=== PATIENT | female | born 1980 | race Caucasian/White ===

== ENCOUNTER 2016-09-09 16:20 | Inpatient (IN) | payer BC ==
[2016-09-09 16:26] VITALS: BMI 31.2
[2016-09-09] MEDS ORDERED: ACETAMINOPHEN 325 MG TABLET (FP) PO ONE (16:42)
--- NOTE | 2016-09-09 16:46 | PDOC ---
History of Present Illness <Nicholas Tomlin - Last Filed: 09/09/16 16:46> - General History Source: Patient Exam Limitations: No Limitations - History of Present Illness Initial Comments: 09/09/16 16:54 The patient is a 35 year old female with no significant past medical history, presenting to the Emergency Department with lower left abdominal pain and fever. The patient reports that she was feeling okay yesterday morning, but began to experience lower left abdominal pain last night. She describes the pain as sharp and worsening since last night. She also reports back pain. She admits to a fever that started today. The patient denies nausea or vomiting, though she has not eaten much due to decreased appetite and the pain. The patient denies nausea, vomiting, and diarrhea. Patient denies chills, or cough. Patient denies melena, or hematochezia. Patient denies neck pain. <Amisha De Guzman - Last Filed: 09/09/16 18:09> <Tricia Rivas - Last Filed: 09/09/16 22:40> - General Chief Complaint: Pain Stated Complaint: ABDOMINAL PAIN Time Seen by Provider: 09/09/16 16:45 Past History - Past Medical History Anemia: No Asthma: No Cancer: No Cardiac Disorders: No CVA: No COPD: No CHF: No Dementia: No Diabetes: No GI Disorders: No Disorders: No HTN: No Hypercholesterolemia: Yes Liver Disease: No Seizures: No Thyroid Disease: No - Surgical History Abdominal Surgery: Yes (TUBAL LIGATION) Appendectomy: No Cardiac Surgery: No Cholecystectomy: No Lung Surgery: No Neurologic Surgery: No Orthopedic Surgery: Yes (ACL REPAIR 2008) - Psycho/Social/Smoking Cessation Hx Anxiety: No Suicidal Ideation: No Smoking Status: No Smoking History: Never smoked Have you smoked in the past 12 months: No Number of Cigarettes Smoked Daily: 0 Information on smoking cessation initiated: No Hx Alcohol Use: No Drug/Substance Use Hx: No Substance Use Type: None Hx Substance Use Treatment: No <Nicholas Tomlin - Last Filed: 09/09/16 16:46> <Amisha De Guzman - Last Filed: 09/09/16 18:09> <Tricia Rivas - Last Filed: 09/09/16 22:40> - Past Medical History Allergies/Adverse Reactions: Allergies Allergy/AdvReac Type Severity Reaction Status Date / Time No Known Allergies Allergy Verified 09/09/16 16:21 Home Medications: Ambulatory Orders NK [No Known Home Medication] 09/09/16 Review of Systems - Review of Systems Able to Perform ROS?: Yes Comments:: 09/09/16 16:54 GENERAL/CONSTITUTIONAL: No fever or chills. No weakness. HEAD, EYES, EARS, NOSE AND THROAT: No change in vision. No ear pain or discharge. No sore throat. CARDIOVASCULAR: No chest pain or shortness of breath. RESPIRATORY: No cough, wheezing, or hemoptysis. GASTROINTESTINAL: + left lower abdominal pain. No nausea, vomiting, diarrhea or constipation. GENITOURINARY: No dysuria, frequency, or change in urination. MUSCULOSKELETAL: + back pain. No joint or muscle swelling or pain. No neck pain. SKIN: No rash NEUROLOGIC: No headache, vertigo, loss of consciousness, or change in strength/ sensation. ENDOCRINE: + decreased appetite. No increased thirst. No abnormal weight change. HEMATOLOGIC/LYMPHATIC: No anemia, easy bleeding, or history of blood clots. ALLERGIC/IMMUNOLOGIC: No hives or skin allergy. <Amisha De Guzman - Last Filed: 09/09/16 18:09> *Physical Exam - Vital Signs Last Vital Signs Temp Pulse Resp BP Pulse Ox 101.7 F H 114 H 18 134/80 97 09/09/16 16:22 09/09/16 16:22 09/09/16 16:22 09/09/16 16:22 09/09/16 16:22 <Nicholas Tomlin - Last Filed: 09/09/16 16:46> - Vital Signs Last Vital Signs Temp Pulse Resp BP Pulse Ox 101.7 F H 114 H 18 134/80 97 09/09/16 16:22 09/09/16 16:22 09/09/16 16:22 09/09/16 16:22 09/09/16 16:22 <Amisha De Guzman - Last Filed: 09/09/16 18:09> - Vital Signs Last Vital Signs Temp Pulse Resp BP Pulse Ox 98.9 F 84 20 103/64 100 09/09/16 20:48 09/09/16 18:01 09/09/16 18:01 09/09/16 18:01 09/09/16 18:01 <Tricia Rivas - Last Filed: 09/09/16 22:40> Heart Score/ECG Review #1 ECG reviewed & interpreted by me at: 17:55 (EKG reviewed by Dr. Tomlin, [facility] Normal sinus rhythm, nonspecific T wave abnormality, vent rate 96 bpm ) <Amisha De Guzman - Last Filed: 09/09/16 18:09> ED Treatment Course - Medications Given in the ED: ED Medications Discontinued Medications Generic Name Dose Route Start Last Admin Trade Name Freq PRN Reason Stop Dose Admin Acetaminophen 975 mg 09/09/16 16:42 09/09/16 16:44 Tylenol - PO 09/09/16 16:43 975 mg NOW ONE Administration <Nicholas Tomlin - Last Filed: 09/09/16 16:46> - LABORATORY CBC & Chemistry Diagram: 09/09/16 17:09 09/09/16 17:09 - Medications Given in the ED: ED Medications Discontinued Medications Generic Name Dose Route Start Last Admin Trade Name Freq PRN Reason Stop Dose Admin Acetaminophen 975 mg 09/09/16 16:42 09/09/16 16:44 Tylenol - PO 09/09/16 16:43 975 mg NOW ONE Administration <Amisha De Guzman - Last Filed: 09/09/16 18:09> - LABORATORY CBC & Chemistry Diagram: 09/09/16 17:09 09/09/16 17:09 - ADDITIONAL ORDERS Additional order review: Laboratory Results 09/09/16 09/09/16 09/09/16 20:11 19:35 19:30 INR PTT (Actin FS) VBG pH 7.39 POC VBG pCO2 35.6 L POC VBG pO2 59.7 H Mixed VBG HCO3 21.0 Sodium Potassium Chloride Carbon Dioxide Anion Gap BUN Creatinine Creat Clearance w eGFR Random Glucose Lactic Acid 1.022 Calcium Total Bilirubin AST ALT Alkaline Phosphatase Creatine Kinase Creatine Kinase Index CK-MB (CK-2) Troponin I Total Protein Albumin Serum , Qual Urine Color Urine Appearance Urine pH Ur Specific Penrose Urine Protein Urine Glucose (UA) Urine Ketones Urine Blood Urine Nitrite Urine Bilirubin Urine Urobilinogen Ur Leukocyte Esterase Urine RBC Urine WBC Ur Epithelial Cells Urine Mucus Blood Type O POSITIVE Antibody Screen Negative 09/09/16 09/09/16 09/09/16 17:25 17:09 17:09 INR PTT (Actin FS) VBG pH POC VBG pCO2 POC VBG pO2 Mixed VBG HCO3 Sodium 137 Potassium 3.7 Chloride 103 Carbon Dioxide 22 Anion Gap 12 BUN 7 D Creatinine 0.8 D Creat Clearance w eGFR > 60 Random Glucose 110 H Lactic Acid 2.083 H* Calcium 8.7 Total Bilirubin 0.5 D AST 21 ALT 30 Alkaline Phosphatase 90 Creatine Kinase 183 D Creatine Kinase Index CK-MB (CK-2) < 1.000 Troponin I < 0.02 Total Protein 7.9 Albumin 3.9 Serum , Qual Negative Urine Color Urine Appearance Urine pH Ur Specific Penrose Urine Protein Urine Glucose (UA) Urine Ketones Urine Blood Urine Nitrite Urine Bilirubin Urine Urobilinogen Ur Leukocyte Esterase Urine RBC Urine WBC Ur Epithelial Cells Urine Mucus Blood Type Antibody Screen 09/09/16 09/09/16 17:09 17:09 INR 1.04 PTT (Actin FS) 32.5 VBG pH POC VBG pCO2 POC VBG pO2 Mixed VBG HCO3 Sodium Potassium Chloride Carbon Dioxide Anion Gap BUN Creatinine Creat Clearance w eGFR Random Glucose Lactic Acid Calcium Total Bilirubin AST ALT Alkaline Phosphatase Creatine Kinase Creatine Kinase Index CK-MB (CK-2) Troponin I Total Protein Albumin Serum , Qual Urine Color Yellow Urine Appearance Clear Urine pH 7.0 Ur Specific Penrose 1.015 Urine Protein 1+ H Urine Glucose (UA) Negative Urine Ketones Negative Urine Blood 3+ H Urine Nitrite Positive Urine Bilirubin Negative Urine Urobilinogen Negative Ur Leukocyte Esterase 2+ H Urine RBC 17 Urine WBC 89 Ur Epithelial Cells Rare Urine Mucus Rare Blood Type Antibody Screen 09/09/16 17:09 RBC 4.90 MCV 83.0 MCHC 32.8 RDW 13.4 MPV 7.0 L Neutrophils % 86.0 H D Lymphocytes % 2.0 L D Monocytes % 9.0 - Medications Given in the ED: ED Medications Discontinued Medications Generic Name Dose Route Start Last Admin Trade Name Freq PRN Reason Stop Dose Admin Acetaminophen 975 mg 09/09/16 16:42 09/09/16 16:44 Tylenol - PO 09/09/16 16:43 975 mg NOW ONE Administration Acetaminophen 1,000 mg 09/09/16 16:52 09/09/16 17:23 Tylenol - PO 09/09/16 16:53 Not Given ONCE ONE Ceftriaxone Sodium 2 gm/ 100 mls @ 200 mls/hr 09/09/16 17:46 09/09/16 18:00 Dextrose IVPB 09/09/16 18:15 200 mls/hr ONCE ONE Administration Sodium Chloride 2,177 ml 09/09/16 16:49 09/09/16 17:10 Normal Saline - IV 09/09/16 16:50 2,177 ml ONCE STA Administration <Tricia Rivas - Last Filed: 09/09/16 22:40> Medical Decision Making - Medical Decision Making 09/09/16 20:57 I received patient on sign out on patient . She has flank pain and dysuria; SHe has WBC20; nitrite positive urine; she has pyelonephritis. She received IV saline, ceftriaxone, and tylenol. She still has pain. I will treat with toradol and morphine. Pt will be admitted to the hospitalist for pyelonephritis. Patient Name: Millie Bergeron THIS IS A PRELIMINARY REPORT FROM [facility] EXAM: CT abdomen and pelvis with intravenous and oral contrast IMAGES: 496 EXAM DATE AND TIME: 2016-09-09 19:33:10.0 REASON FOR EXAM: Abdominal pain and fever COMPARISON: None. FINDINGS: Small pericardial effusion There is left perinephric stranding without hydronephrosis. No stones are seen along the course of the ureter or within the bladder. Findings may be residual from a recently passed stone versus infection. There are multiple nonobstructing stones in the left kidney An 8 mm cortical hypodensity in the upper pole of the left kidney is likely a cyst Cortical defect in the upper pole of the right kidney likely scarring The liver is mildly enlarged The upper abdominal visceral organs are otherwise unremarkable There is no bowel obstruction or distention The appendix is normal Colonic diverticulosis, predominantly sigmoid colon without evidence of acute diverticulitis No free air, free fluid or loculated collections THIS DOCUMENT HAS BEEN ELECTRONICALLY SIGNED 09/09/16 22:39 Pt admitted to the hospitalist for pyelonephritis. <Tricia Rivas - Last Filed: 09/09/16 22:40> *DC/Admit/Observation/Transfer - Attestations Physician Attestion: 09/09/16 16:46 I, Dr. Nicholas Tomlin, attest that this document has been prepared under my direction and personally reviewed by me in its entirety. I further attest, that it accurately reflects all work, treatment, procedures and medical decision -making performed by me. <Nicholas Tomlin - Last Filed: 09/09/16 16:46> - Attestations Scribe Attestion: 09/09/16 16:56 Documentation prepared by Amisha De Guzman, acting as associate medical director for Nicholas Tomlin DO. <Amisha De Guzman - Last Filed: 09/09/16 18:09> - Discharge Dispostion Admit: Yes <Tricia Rivas - Last Filed: 09/09/16 22:40> Diagnosis at time of Disposition: Pyelonephritis, UTI (urinary tract infection), Renal stones - Referrals
[2016-09-09] MEDS ORDERED: SODIUM CHLORIDE 0.9% 1000 ML INFUS.BAG IV STA (16:49)
[2016-09-09] MEDS ORDERED: ACETAMINOPHEN 500 MG TABLET (FP) PO ONE (16:52)
[2016-09-09 17:24] LABS: URINE APPEARANCE CLEAR; URINE BILIRUBIN NEGATIVE (NEGATIVE); URINE COLOR YELLOW; URINE GLUCOSE (UA) NEGATIVE (NEGATIVE); URINE KETONE NEGATIVE (NEGATIVE); URINE NITRITE POSITIVE (NEGATIVE); URINE UROBILINOGEN NEGATIVE E.U./dl (0.2-1.0)
[2016-09-09 17:25] LABS: MCH 27.3 pg (25.7-33.7); MCHC 32.8 g/dl (32.0-36.0); PLATELET COUNT 351 K/MM3 (134-434); RDW 13.4 % (11.6-15.6); WHITE BLOOD COUNT 20.3 K/mm3 (4.0-10.0)
[2016-09-09 17:30] LABS: URINE BLOOD 3+ (NEGATIVE); URINE LEUK ESTERASE 2+ (NEGATIVE); URINE PROTEIN 1+ (NEGATIVE)
[2016-09-09 17:33] LABS: URINE MUCUS RARE; URINE RBC 17 /hpf (0-3); URINE WBC 89 /hpf (3-5)
[2016-09-09 17:36] LABS: INR 1.04 (0.82-1.09); PROTHROMBIN TIME (PATIENT) 11.5 SEC (9.98-11.88)
[2016-09-09 17:38] LABS: ACTIVATED PTT 32.5 SECONDS (26.9-34.4)
[2016-09-09 17:45] LABS: ALBUMIN 3.9 g/dl (3.4-5.0); ANION GAP 12 (8-16); BILIRUBIN,TOTAL 0.5 mg/dL (0.2-1.0); CALCIUM 8.7 mg/dL (8.5-10.1); CO2 22 mmol/L (21-32); COCKROFT - GAULT 110.3045; CREATININE 0.8 mg/dL (0.55-1.02); GLUCOSE,RANDOM 110 mg/dL (74-106); SGOT/AST 21 U/L (15-37); SGPT/ALT 30 U/L (12-78); TOT PROT 7.9 g/dl (6.4-8.2)
[2016-09-09] MEDS ORDERED: CEFTRIAXONE 2 GM in DEXTROSE 5%-WATER - 100 ML IVPB ONE (17:46)
[2016-09-09 17:47] LABS: ALK PHOS 90 U/L (45-117); TROPONIN I < 0.02 ng/ml (0.00-0.05)
[2016-09-09] MEDS ORDERED: CEFTRIAXONE 100 ML IVPB ONE (17:50)
[2016-09-09 17:58] LABS: PLATELET ESTIMATE ADEQUATE (NORMAL)
[2016-09-09 19:33] LABS: VENOUS PH 7.39 (7.32-7.42)
[2016-09-09] MEDS ORDERED: KETOROLAC TROMETHAMINE 30 MG/1 ML VIAL IVPUSH ONE (20:55)
[2016-09-09] MEDS ORDERED: morphine CARPU-JECT 2 MG/1 ML DISP.SYRIN ONE (20:56)
[2016-09-09] MEDS ORDERED: morphine CARPU-JECT 2 MG/1 ML DISP.SYRIN IVPUSH ONE (21:01)
[2016-09-09] MEDS ORDERED: KETOROLAC TROMETHAMINE 30 MG/1 ML VIAL ONE (21:44)
[2016-09-09] MEDS ORDERED: SODIUM CHLORIDE 1,000 ML IV SCH (23:00)
[2016-09-09] MEDS ORDERED: ONDANSETRON 4 MG/2 ML VIAL IVPB PRN (23:00)
--- NOTE | 2016-09-09 23:08 | PN ---
Teaching Attending Note Name of Resident: Ant Lord ATTENDING PHYSICIAN STATEMENT I saw and evaluated the patient. I reviewed the resident's note and discussed the case with the resident. I agree with the resident's findings and plan as documented. SUBJECTIVE: 35 y/o lady with h/o nephrolithiasis, s/p L UVJ obstructing stone , s/p L ureteral stent placement and stone extraction in 2012 , whop resented with L L abd pain and chills. this am , she developed LLQ pain, with chills, and no fever . she has been having dysuria in past 2 days , but attributed that to her period ( day 2 today ) . denies N/V, has no diarrhea . no other complaints in ER , CT showed L renal stranding , and she was given CTX. OBJECTIVE: NAD HEENT: NC, AT, MMM, no JVD, symmetric face , no facial droop,. Lungs: CTAB Abd :soft, TTP in suprapubic area and L CVA tenderness . nl BS , no rebound tenderness or guarding CV: RRR, No mRG Ext : no edema , DP 2+ b/l Imaging : There is left perinephric stranding without hydronephrosis. No stones are seen along the course of the ureter or within the bladder. Findings may be residual from a recently passed stone versus infection. There are multiple nonobstructing stones in the left kidney An 8 mm cortical hypodensity in the upper pole of the left kidney is likely a cys ASSESSMENT AND PLAN: 35 y/o lady with h/o nephrolithiasis, s/p L UVJ obstructing stone , s/p L ureteral stent placement and stone extraction in 2012 , whop resented with L L abd pain and chills. She was found to have acute L pyelonephritis 1- Acute L pyelonephritis with severe sepsis : no obstructing stones were seen on Ct scan . lactic acid responded to IVF, and pt is hemodynamically stable - blood cx and urine cx were sent - Received Rocephin in ER. - urine cx in 2011 , showed eneterobacter which was resistant to PCN with intermediate sensitivity to Rocephin. and sensitive to levaquin - will use levaquin empirically pending urine cx results - IVF NS @ 100 - toradol for pain. - no need for repeat imaging unless, clinical picture worsens or does not respond to treatment - follow CBC - urology f/u as out pt as there is no obstructing stone 2- DVT px
[2016-09-09] MEDS ORDERED: PANTOPRAZOLE 40 MG TABLET (FP) ONE (23:33)
--- NOTE | 2016-09-09 23:55 | HP ---
CHIEF COMPLAINT: LLQ Abdominal pain PCP: [facility] ? HISTORY OF PRESENT ILLNESS: Patient is a 35 year old female with significant PMH of nephrolithiasis (2012, s /p stent & extraction surgery) who presents to ED with LLQ abdominal pain & fever. Patient states pain started last night & has worsened progressively since then. The pain is located in her LLQ but feels like it may have radiated a bit closer to her groin onver the last 24 hours, according to patient. She also notes bilateral flank pain, LEFT>RIGHT, that started this afternoon. Patient states that she has had decreased appetite & fever chills for last 24 hours, but initially thought it was because she was starting to menstruate. She also notes some mild dysuria over last few days, but again states that this is common during her menstrual cycle at times. Denies shortness of breath, palpitations, headache, nausea, vomiting. ER course was notable for: (1)Leukocytosis WBC 20 with neutrophils 86% (2)CT Abd: Left perinephric stranding without signs of hydronephrosis; some non- obstructing stones noted in left kidney (3)UA 2+ LE w/ 89WBC Recent Travel: NONE NOTED PAST MEDICAL HISTORY: ABOVE PAST SURGICAL HISTORY: URETHRAL STENT & STONE EXTRACTION, ACL SURGERY, TUBAL LIGATION Social History: Smoking:NONE Alcohol:NONE Drugs:NONE Family History: ADOPTED, DOES NOT KNOW Allergies No Known Allergies Allergy (Verified 09/09/16 16:21) HOME MEDICATIONS: Home Medications Medication Instructions Recorded NK [No Known Home Medication] 09/09/16 REVIEW OF SYSTEMS CONSTITUTIONAL: (+)fever, chills, loss of appetite, Absent: diaphoresis, generalized weakness, malaise, weight change HEENT: Absent: rhinorrhea, nasal congestion, throat pain, throat swelling, difficulty swallowing, mouth swelling, ear pain, eye pain, visual changes CARDIOVASCULAR: Absent: chest pain, syncope, palpitations, irregular heart rate, lightheadedness , peripheral edema RESPIRATORY: Absent: cough, shortness of breath, dyspnea with exertion, orthopnea, wheezing, stridor, hemoptysis GASTROINTESTINAL: (+)abdominal pain, Absent: abdominal distension, nausea, vomiting, diarrhea, constipation, melena, hematochezia GENITOURINARY: (+)dysuria, flank pain, Absent: frequency, urgency, hesitancy, hematuria, genital pain MUSCULOSKELETAL: Absent: myalgia, arthralgia, joint swelling, back pain, neck pain SKIN: Absent: rash, itching, pallor HEMATOLOGIC/IMMUNOLOGIC: Absent: easy bleeding, easy bruising, lymphadenopathy, frequent infections ENDOCRINE: Absent: unexplained weight gain, unexplained weight loss, heat intolerance, cold intolerance NEUROLOGIC: Absent: headache, focal weakness or paresthesias, dizziness, unsteady gait, seizure, mental status changes, bladder or bowel incontinence PSYCHIATRIC: Absent: anxiety, depression, suicidal or homicidal ideation, hallucinations. PHYSICAL EXAMINATION Vital Signs - 24 hr 09/09/16 22:01 Temperature 99.5 F Pulse Rate [ 83 Left Radial] Respiratory 20 Rate Blood Pressure 135/99 [Right Arm] O2 Sat by Pulse 99 Oximetry (%) GENERAL: Awake, alert, and fully oriented, in no acute distress. HEENT: Atraumatic, EOMI, PERRLA, No lymphadenopathy noted, moist membranes LUNGS: Breath sounds equal, clear to auscultation bilaterally. No wheezes, and no crackles. No accessory muscle use. HEART: Regular rate and rhythm, normal S1 and S2 without murmur, rub or gallop. ABDOMEN: Soft, moderately tender to palpation diffuse lower abdomen but notably in LLQ. Not distended, normoactive bowel sounds, no guarding, no rebound. MUSCULOSKELETAL: Normal range of motion at all joints. No bony deformities or tenderness. CVA TENDERNESS BILATERALLY (LEFT>RIGHT) UPPER EXTREMITIES: 2+ pulses, warm, well-perfused. No cyanosis. No clubbing. No peripheral edema. LOWER EXTREMITIES: 2+ pulses, warm, well-perfused. No calf tenderness. No peripheral edema. NEUROLOGICAL: Cranial nerves II-XII intact. Normal speech. Normal gait. PSYCHIATRIC: Cooperative. Good eye contact. Appropriate mood and affect. SKIN: Warm, dry, normal turgor, no rashes or lesions noted, normal capillary refill. ASSESSMENT/PLAN: 35 year old female with significant PMH of nephrolithiasis (2011, s/p stent & extraction surgery) who presents to ED with LLQ abdominal pain & fever. #Severe sepsis, secondary to left pyelonephritis -Rocephin given in ED, will start on Levaquin based on earlier urine culture findings from previous admission -Bolused with IVF in ED, BP/HR now stable -IVF NS@100cc/hr -urine, blood cultures sent -pain management w/ Toradol PRN -No ultrasound needed at present, can decide if needed based on trend tomorrow -will need urology outpatient followup Prophylaxis -Heparin 5000BID -PPI given -IVF NS@100cc/hr -regular diet Visit type - Emergency Visit Emergency Visit: Yes ED Registration Date: 09/09/16 Care time: The patient presented to the Emergency Department on the above date and was hospitalized for further evaluation of their emergent condition. - New Patient This patient is new to me today: Yes Date on this admission: 09/10/16 - Critical Care Critical Care patient: No
[2016-09-10] MEDS ORDERED: LEVOFLOXACIN 500 MG IVPB 100 ML IVPB ONE (00:17)
[2016-09-10] MEDS: SODIUM CHLORIDE 1,000 ML IV SCH ×2 (01:00→21:31)
[2016-09-10] MEDS: ACETAMINOPHEN 325 MG TABLET (FP) PO PRN ×3 (06:33→21:32)
[2016-09-10] MEDS: HEPARIN NA (PORCINE) 5,000 UNITS/ML 1ML VIAL SQ SCH ×3 (06:34→21:30)
[2016-09-10] MEDS: KETOROLAC TROMETHAMINE 30 MG/1 ML VIAL IVPUSH PRN ×2 (06:34→11:13)
[2016-09-10 07:09] LABS: BASOPHIL 0.4 % (0-2.0); EOSINOPHIL 0.1 % (0-4.5); MCH 27.8 pg (25.7-33.7); MCHC 33.1 g/dl (32.0-36.0); MEAN CELL VOLUME 83.9 fl (80-96); MEAN PLT VOLUME 7.2 fl (7.5-11.1); NEUTROPHILS 87.4 % (42.8-82.8); PLATELET COUNT 314 K/MM3 (134-434); RDW 13.3 % (11.6-15.6); WHITE BLOOD COUNT 19.3 K/mm3 (4.0-10.0)
[2016-09-10 07:32] LABS: CALCIUM 8.4 mg/dL (8.5-10.1); COCKROFT - GAULT 157.9215; CREATININE 0.6 mg/dL (0.55-1.02)
[2016-09-10] MEDS ORDERED: CEFTRIAXONE 50 ML IVPB SCH (10:00)
[2016-09-10] MEDS: PANTOPRAZOLE 20 MG TABLET (FP) PO SCH ×2 (10:03)
[2016-09-10] MEDS: LEVOFLOXACIN 500 MG IVPB 100 ML IVPB SCH (10:03)
--- NOTE | 2016-09-10 10:17 | EKG ---
Test Reason : Blood Pressure : / mmHG Vent. Rate : 096 BPM Atrial Rate : 096 BPM P-R Int : 152 ms QRS Dur : 070 ms QT Int : 354 ms P-R-T Axes : 028 060 022 degrees QTc Int : 447 ms NORMAL SINUS RHYTHM NONSPECIFIC T WAVE ABNORMALITY ABNORMAL ECG WHEN COMPARED WITH ECG OF 15-JUN-2013 14:32, VENT. RATE HAS INCREASED BY 34 BPM NONSPECIFIC T WAVE ABNORMALITY NOW EVIDENT IN LATERAL LEADS Confirmed by HAMMAD LANTIGUA MD ([id number]) on 09/10/2016 10:17:50 AM Referred By: Confirmed By:HAMMAD LANTIGUA MD
[2016-09-10] MEDS ORDERED: SODIUM CHLORIDE 1,000 ML IV STA (10:34)
--- NOTE | 2016-09-10 10:40 | PN ---
Teaching Attending Note Name of Resident: Warner Patel ATTENDING PHYSICIAN STATEMENT I saw and evaluated the patient. I reviewed the resident's note and discussed the case with the resident. I agree with the resident's findings and plan as documented. SUBJECTIVE: She says she is feeling "much better" and would like to go home. She says she felt "10/10 bad" on admission and now feels "5/10." But she does want to go home today. OBJECTIVE: Vitals noted She is very well appearing CBC noted ASSESSMENT AND PLAN: She is well appearing, young, healthy and immunocompetent She got her morning Levaquin She does have a persistent leukocytosis BCx negative I am in favor of repeating CBC today and reassessing before discharging She did promise that if we discharge her, she will see PCP tomorrow and return with ANY worsening or new symptoms Levaquin does have excellent bioavailability and she already received her dose today See resident note for full details
[2016-09-10 12:11] LABS: BASOPHIL 0.3 % (0-2.0); EOSINOPHIL 0.4 % (0-4.5); MCH 28.3 pg (25.7-33.7); MCHC 33.4 g/dl (32.0-36.0); MEAN CELL VOLUME 84.6 fl (80-96); NEUTROPHILS 84.1 % (42.8-82.8); PLATELET COUNT 287 K/MM3 (134-434); RDW 13.4 % (11.6-15.6); WHITE BLOOD COUNT 13.9 K/mm3 (4.0-10.0)
--- NOTE | 2016-09-10 15:20 | DS ---
Physical Exam: SUBJECTIVE: Patient seen and examined at bedside. Pain is significantly improved. Feels well enough to go home.Denies CP,MURRAY, SOB, abd.pain, N/V. OBJECTIVE: Vital Signs Period Temp Pulse Resp BP Sys/Wiley Pulse Ox Last 24 Hr 98.6 F-99.9 F 78-96 16-20 99-135/54-99 97-99 PHYSICAL EXAM GENERAL: The patient is awake, alert, and fully oriented, in no acute distress. HEAD: Normal with no signs of trauma. EYES: PERRL, extraocular movements intact, sclera anicteric, conjunctiva clear. ENT: Ears normal, nares patent, moist mucous membranes. NECK: Trachea midline, full range of motion, supple. LUNGS: Breath sounds equal, clear to auscultation bilaterally, no wheezes, no crackles, no accessory muscle use. HEART: Regular rate and rhythm, S1, S2 without murmur, rub or gallop. ABDOMEN: Soft, nontender, nondistended, normoactive bowel sounds, no guarding, no rebound, no hepatosplenomegaly, no masses. EXTREMITIES: 2+ pulses, warm, well-perfused, no edema. NEUROLOGICAL: Cranial nerves II through XII grossly intact. Normal speech, gait not observed. PSYCH: Normal mood, normal affect. SKIN: Warm, dry, normal turgor, no rashes or lesions noted. LABS Laboratory Results - last 24 hr 09/10/16 09/10/16 09/10/16 05:35 05:35 11:50 WBC 19.3 H 13.9 H RBC 4.40 4.23 Hgb 12.2 12.0 Hct 37.0 35.8 MCV 83.9 84.6 MCHC 33.1 33.4 RDW 13.3 13.4 Plt Count 314 287 MPV 7.2 L 7.0 L Neutrophils % 87.4 H 84.1 H Lymphocytes % 3.4 L D 7.0 L D Monocytes % 8.7 8.2 Eosinophils % 0.1 D 0.4 D Basophils % 0.4 0.3 Sodium 137 Potassium 3.7 Chloride 105 Carbon Dioxide 19 L Anion Gap 13 BUN 5 L D Creatinine 0.6 D Random Glucose 109 H Calcium 8.4 L Imaging: * CT/ABDOMEN PELVIS CT WITH CONTR Clinical history: Abdominal pain and fever. Left lower quadrant tenderness. Comparison: September 17, 2011. Contiguous transaxial images were obtained from the diaphragmatic domes and pubic symphysis after the administration of oral and IV contrast. Sagittal and coronal reconstructions were performed. Lung bases: Negative. Bone: Negative. Liver: Mild hepatomegaly. Gallbladder: Negative. Biliary tree: Negative. Spleen: Negative. Pancreas: Negative. Kidneys: Small hypodensity in the upper pole of the left kidney most likely represents a cyst. Small left renal calculi. No hydronephrosis in either kidney. There is left perirenal stranding. The possibility of a recently passed stone is raised. Cortical scarring upper pole right kidney. Adrenals: Negative. Pelvis: Negative. Bowel: Diverticulosis without CT evidence of diverticulitis. Normal-appearing appendix. Other: Negative. Impression: No evidence of hydronephrosis or left ureteral or bladder stone. Multiple small intrarenal calculi on the left. Mild left perirenal stranding. The question of a recently passed stone is raised. Right cortical scarring and small left upper pole probable cyst. There is diverticulosis without CT evidence of diverticulitis. Clinical correlation advised. Study was initially read by Darron. Reported By : Cornelius Sandoval MD HOSPITAL COURSE: Patient is a 35 year old female with significant PMH of nephrolithiasis (2012, s /p stent & extraction surgery) who presented to ED with LLQ abdominal pain & fever. Patient stated pain started last night & has worsened progressively since then. The pain was located in her LLQ but feels like it may have radiated a bit closer to her groin over the last 24 hours, according to patient. She also noted bilateral flank pain, LEFT>RIGHT, that started this afternoon. Patient states that she has had decreased appetite & fever chills for last 24 hours, but initially thought it was because she was starting to menstruate. She also notes some mild dysuria over last few days, but again states that this is common during her menstrual cycle at times. Date of Admission:09/09/16 Date of Discharge: 09/10/16 This patient developed spike in fever prior to completion of discharge and patient was later discharged once clinical condition stabilized. Please refer to subsequent discharge summary for complete hospital course. Minutes to complete discharge: 35 Discharge Summary Reason For Visit: UTI/CACULUS KIDNEY/PYELONEPHRYIYTIS Current Active Problems Pyelonephritis (Acute) UTI (urinary tract infection) (Acute) Condition: Stable - Instructions Diet, Activity, Other Instructions: continue the antibiotics starting tomorrow for 11 more days take the antibiotics until they are finished exercise daily follow up with your primary care doctor follow up with the urologist if you experience these symptoms again go to the nearest emergency room it was a pleasure taking care of you Good luck Dr. Thaddeus Marsh Referrals: Mike Longoria [Primary Care Provider] - Braden Fenton MD [Staff Physician] - Disposition: HOME - Home Medications Comprehensive Discharge Medication List: Ambulatory Orders NK [No Known Home Medication] 09/09/16 Problem List - Problems (1) Pyelonephritis Assessment/Plan: * Given Rocephin x1 and Levaquin 500mg IV x1 * CBC showed decrease in WBC from 20--> 13 * Hydrated with IVF of NS * significant clinical improvement. * Discussed with patient the importance of quick follow up with PCP and she agreed. * Will refer to Urology for follow up . * She will be given 14 day course of Levaquin and pain control with Toradol. * Told to return to ED if pain worsens or develops fever/chills. (2) UTI (urinary tract infection) Assessment/Plan: * As above for pyelonephritis. This patient is new to me today: Yes Date on this admission: 09/14/16 Emergency Visit: Yes ED Registration Date: 09/09/16 Care time: The patient presented to the Emergency Department on the above date and was hospitalized for further evaluation of their emergent condition. Critical Care patient: No - Discharge Referral Referred to [facility] Med P.C.: No
[2016-09-10] MEDS ORDERED: morphine CARPU-JECT 2 MG/1 ML DISP.SYRIN IVPUSH ONE (16:47)
[2016-09-11] MEDS: ACETAMINOPHEN 325 MG TABLET (FP) PO PRN ×2 (06:17→14:43)
[2016-09-11] MEDS: HEPARIN NA (PORCINE) 5,000 UNITS/ML 1ML VIAL SQ SCH ×3 (06:17→21:09)
[2016-09-11] MEDS: SODIUM CHLORIDE 1,000 ML IV SCH ×2 (06:18→18:13)
--- NOTE | 2016-09-11 09:09 | PN ---
Teaching Attending Note Name of Resident: Thaddeus Marsh ATTENDING PHYSICIAN STATEMENT I saw and evaluated the patient. I reviewed the resident's note and discussed the case with the resident. I agree with the resident's findings and plan as documented. Subjective: Comfortable, fever overnight, but no acute distress. No shortness of breath. Vital Signs Temperature 101.1 F H 09/11/16 05:00 Pulse Rate 101 H 09/11/16 05:00 Respiratory Rate 18 09/11/16 05:00 Blood Pressure 117/79 09/11/16 05:00 O2 Sat by Pulse Oximetry (%) 97 09/10/16 21:00 CBCD WBC 13.9 K/mm3 (4.0-10.0) H 09/10/16 11:50 RBC 4.23 M/mm3 (3.60-5.2) 09/10/16 11:50 Hgb 12.0 GM/dL (10.7-15.3) 09/10/16 11:50 Hct 35.8 % (32.4-45.2) 09/10/16 11:50 MCV 84.6 fl (80-96) 09/10/16 11:50 MCHC 33.4 g/dl (32.0-36.0) 09/10/16 11:50 RDW 13.4 % (11.6-15.6) 09/10/16 11:50 Plt Count 287 K/MM3 (134-434) 09/10/16 11:50 MPV 7.0 fl (7.5-11.1) L 09/10/16 11:50 CMP Sodium 137 mmol/L (136-145) 09/10/16 05:35 Potassium 3.7 mmol/L (3.5-5.1) 09/10/16 05:35 Chloride 105 mmol/L (98-107) 09/10/16 05:35 Carbon Dioxide 19 mmol/L (21-32) L 09/10/16 05:35 Anion Gap 13 (8-16) 09/10/16 05:35 BUN 5 mg/dL (7-18) L D 09/10/16 05:35 Creatinine 0.6 mg/dL (0.55-1.02) D 09/10/16 05:35 Creat Clearance w eGFR > 60 (>60) 09/09/16 17:09 Random Glucose 109 mg/dL (74-106) H 09/10/16 05:35 Calcium 8.4 mg/dL (8.5-10.1) L 09/10/16 05:35 Total Bilirubin 0.5 mg/dL (0.2-1.0) D 09/09/16 17:09 AST 21 U/L (15-37) 09/09/16 17:09 ALT 30 U/L (12-78) 09/09/16 17:09 Alkaline Phosphatase 90 U/L (45-117) 09/09/16 17:09 Total Protein 7.9 g/dl (6.4-8.2) 09/09/16 17:09 Albumin 3.9 g/dl (3.4-5.0) 09/09/16 17:09 CARDIAC ENZYMES Creatine Kinase 183 IU/L (26-192) D 09/09/16 17:09 Troponin I < 0.02 ng/ml (0.00-0.05) 09/09/16 17:09 Current Medications Generic Name Dose Route Start Last Admin Trade Name Freq PRN Reason Stop Dose Admin Acetaminophen 650 mg 09/09/16 23:00 09/11/16 06:17 Tylenol - PO 650 mg Q4H PRN Administration FEVER OR PAIN Heparin Sodium (Porcine) 5,000 unit 09/10/16 06:00 09/11/16 06:17 Heparin - SQ 5,000 unit TID NAT Administration Sodium Chloride 1,000 mls @ 100 mls/hr 09/10/16 00:19 09/11/16 06:18 Normal Saline - IV 100 mls/hr ASDIR NAT Administration Levofloxacin 100 mls @ 100 mls/hr 09/10/16 00:44 09/10/16 10:03 Levaquin 500 Mg Premixed Ivpb - IVPB 100 mls/hr DAILY ANT Administration Ketorolac Tromethamine 30 mg 09/10/16 00:17 09/10/16 11:13 Toradol Injection - IVPUSH 09/15/16 00:16 30 mg Q6H PRN Administration PAIN Pantoprazole Sodium 20 mg 09/09/16 23:15 09/10/16 10:03 Protonix - PO 20 mg DAILY NAT Administration Microbiology 09/09/16 17:09 Urine - Urine Clean Catch Urine Culture - Preliminary Lactose Fermenting Neg Bacilli 09/09/16 17:25 Blood - Peripheral Venous Blood Culture - Preliminary NO GROWTH OBTAINED AFTER 24 HOURS, INCUBATION TO CONTINUE FOR 4 DAYS. 09/09/16 17:09 Blood - Peripheral Venous Blood Culture - Preliminary NO GROWTH OBTAINED AFTER 24 HOURS, INCUBATION TO CONTINUE FOR 4 DAYS. Imaging : There is left perinephric stranding without hydronephrosis. No stones are seen along the course of the ureter or within the bladder. Findings may be residual from a recently passed stone versus infection. There are multiple nonobstructing stones in the left kidney An 8 mm cortical hypodensity in the upper pole of the left kidney is likely a cys ASSESSMENT AND PLAN: Patient is a 35 y/o lady with h/o nephrolithiasis, s/p L UVJ obstructing stone , s/p L ureteral stent placement and stone extraction in 2011 , who presented with L abd pain and chills. She was found to have acute L pyelonephritis # Acute Left pyelonephritis with sepsis ; positive for Lactose Fermenting Neg Bacilli on IV antibiotic Rocephin was changed to IV Levaquin since patient's previously showed eneterobacter which was resistant to PCN with intermediate sensitivity to Rocephin but sensitive to levaquin ; patient has not used Levaquin before. Urology f/u as out pt as there is no obstructing stone waiting for sensitivity of the antibiotic before discharging the patient home. DVT px :early ambulation ,heparin sq tid Rest of notes per resident
[2016-09-11] MEDS: LEVOFLOXACIN 500 MG IVPB 100 ML IVPB SCH (09:46)
[2016-09-11] MEDS: PANTOPRAZOLE 20 MG TABLET (FP) PO SCH (09:46)
--- NOTE | 2016-09-11 12:27 | PN ---
Physical Exam: SUBJECTIVE: Patient seen and examined at bedside febrile to 103 at 9pm last night and 101.1 at 5am this morning this morning she states she feels very well and wants to go home. OBJECTIVE: Vital Signs Period Temp Pulse Resp BP Sys/Wiley Pulse Ox Last 24 Hr 98.8 F-103 F 78-112 18-20 97-132/54-79 96-97 GENERAL: The patient is awake, alert, and fully oriented, in no acute distress. HEAD: Normal with no signs of trauma. EYES: PERRL, extraocular movements intact, sclera anicteric, conjunctiva clear. ENT: Ears normal, nares patent, moist mucous membranes. NECK: Trachea midline, full range of motion, supple. LUNGS: Breath sounds equal, clear to auscultation bilaterally, no wheezes, no crackles, no accessory muscle use. HEART: Regular rate and rhythm, S1, S2 without murmur, rub or gallop. ABDOMEN: Soft, nontender, nondistended, normoactive bowel sounds, no guarding, no rebound, no hepatosplenomegaly, no masses. EXTREMITIES: 2+ pulses, warm, well-perfused, no edema. NEUROLOGICAL: Cranial nerves II through XII grossly intact. Normal speech, gait not observed. PSYCH: Normal mood, normal affect. SKIN: Warm, dry, normal turgor, no rashes or lesions noted. Laboratory Results - last 24 hr 09/10/16 11:50 WBC 13.9 H RBC 4.23 Hgb 12.0 Hct 35.8 MCV 84.6 MCHC 33.4 RDW 13.4 Plt Count 287 MPV 7.0 L Neutrophils % 84.1 H Lymphocytes % 7.0 L D Monocytes % 8.2 Eosinophils % 0.4 D Basophils % 0.3 Active Medications Generic Name Dose Route Start Last Admin Trade Name Freq PRN Reason Stop Dose Admin Acetaminophen 650 mg 09/09/16 23:00 09/11/16 06:17 Tylenol - PO 650 mg Q4H PRN Administration FEVER OR PAIN Heparin Sodium (Porcine) 5,000 unit 09/10/16 06:00 09/11/16 06:17 Heparin - SQ 5,000 unit TID NAT Administration Sodium Chloride 1,000 mls @ 100 mls/hr 09/10/16 00:19 09/11/16 06:18 Normal Saline - IV 100 mls/hr ASDIR NAT Administration Levofloxacin 100 mls @ 100 mls/hr 09/10/16 00:44 09/11/16 09:46 Levaquin 500 Mg Premixed Ivpb - IVPB 100 mls/hr DAILY NAT Administration Ketorolac Tromethamine 30 mg 09/10/16 00:17 09/10/16 11:13 Toradol Injection - IVPUSH 09/15/16 00:16 30 mg Q6H PRN Administration PAIN Pantoprazole Sodium 20 mg 09/09/16 23:15 09/11/16 09:46 Protonix - PO 20 mg DAILY NAT Administration ASSESSMENT/PLAN: 35F with no PMH presented to the ED with left flank pain radiating to the groin found to have left pyelonephritis. Pyelonephritis/UTI: Continue levaquin UCx growing lactose fermenting GM negative bacilli. f/u sensitivities Discharge once abefrile and sensitivities are back toradol for apin control FEN: stop IVF No electrolyte issues regular diet PPx: HSQ no indication for GI PPx no PT consult needed Visit type - Emergency Visit Emergency Visit: Yes ED Registration Date: 09/09/16 Care time: The patient presented to the Emergency Department on the above date and was hospitalized for further evaluation of their emergent condition. - New Patient This patient is new to me today: Yes Date on this admission: 09/11/16 - Critical Care Critical Care patient: No
[2016-09-11] MEDS ORDERED: ACETAMINOPHEN 325 MG TABLET (FP) PO PRN (15:36)
[2016-09-12] MEDS: HEPARIN NA (PORCINE) 5,000 UNITS/ML 1ML VIAL SQ SCH ×2 (05:59→15:14)
[2016-09-12] MEDS: SODIUM CHLORIDE 1,000 ML IV SCH (06:00)
[2016-09-12] MEDS: LEVOFLOXACIN 500 MG IVPB 100 ML IVPB SCH (09:28)
--- NOTE | 2016-09-12 13:44 | DS ---
Physical Exam: SUBJECTIVE: Patient seen and examined at bedside Afebrile for more than 24 hours asymptomatic wants to go home OBJECTIVE: Vital Signs Period Temp Pulse Resp BP Sys/Wiley Pulse Ox Last 24 Hr 98.4 F-99.3 F 80-84 18-20 115-135/71-87 96 PHYSICAL EXAM GENERAL: The patient is awake, alert, and fully oriented, in no acute distress. HEAD: Normal with no signs of trauma. EYES: PERRL, extraocular movements intact, sclera anicteric, conjunctiva clear. ENT: Ears normal, nares patent, moist mucous membranes. NECK: Trachea midline, full range of motion, supple. LUNGS: Breath sounds equal, clear to auscultation bilaterally, no wheezes, no crackles, no accessory muscle use. HEART: Regular rate and rhythm, S1, S2 without murmur, rub or gallop. ABDOMEN: Soft, nontender, nondistended, normoactive bowel sounds, no guarding, no rebound, no hepatosplenomegaly, no masses. EXTREMITIES: 2+ pulses, warm, well-perfused, no edema. NEUROLOGICAL: Cranial nerves II through XII grossly intact. Normal speech, gait not observed. PSYCH: Normal mood, normal affect. SKIN: Warm, dry, normal turgor, no rashes or lesions noted. LABS HOSPITAL COURSE: Date of Admission:09/09/16 Date of Discharge: 09/12/16 35F with no PMH presented to the hospital in severe sepsis secondary to pyelonephritis. She was admitted to the hospital and was resuscitated. She was started on ABx. Continued to spike fevers throughout her hospital course up until her second hospital day in the morning when she stopped spiking fevers. UCx grew a youssef sensitive E. coli. She will be discharged on PO levaquin for 11 more days to complete a 14 day course. Minutes to complete discharge: 40 Discharge Summary Reason For Visit: UTI/CACULUS KIDNEY/PYELONEPHRYIYTIS Current Active Problems Pyelonephritis (Acute) Renal stones (Acute) UTI (urinary tract infection) (Acute) Condition: Stable - Instructions Diet, Activity, Other Instructions: continue the antibiotics starting tomorrow for 11 more days take the antibiotics until they are finished exercise daily follow up with your primary care doctor follow up with the urologist if you experience these symptoms again go to the nearest emergency room it was a pleasure taking care of you Good luck Dr. Thaddeus Marsh Referrals: Mike Longoria [Primary Care Provider] - Braden Fenton MD [Staff Physician] - Disposition: HOME - Home Medications Comprehensive Discharge Medication List: Ambulatory Orders Levofloxacin [Levaquin -] 500 mg PO DAILY #11 tablet 09/12/16 This patient is new to me today: No Emergency Visit: Yes ED Registration Date: 09/09/16 Care time: The patient presented to the Emergency Department on the above date and was hospitalized for further evaluation of their emergent condition. Critical Care patient: No - Discharge Referral Referred to [facility] Med P.C.: No
[2016-09-12 13:50] VITALS: BP 104/73; PULSE 73; TEMP 98.3
--- NOTE | 2016-09-12 18:44 | PN ---
Teaching Attending Note Name of Resident: Thaddeus Marsh ATTENDING PHYSICIAN STATEMENT I saw and evaluated the patient. I reviewed the resident's note and discussed the case with the resident. I agree with the resident's findings and plan as documented. SUBJECTIVE: no fever or chills, no abd pain , no CP or SOB OBJECTIVE: NAD Lungs: CTAB Abd :soft, NT, NL BS , no CVA tenderness CV: RRR, No mRG Ext : no edema , DP 2+ b/l ASSESSMENT AND PLAN: 35 y/o lady with h/o nephrolithiasis, s/p L UVJ obstructing stone , s/p L ureteral stent placement and stone extraction in 2011 , whop resented with L L abd pain and chills. She was found to have acute L pyelonephritis 1- Acute L pyelonephritis with severe sepsis :sepsis resolved . She is doig better . no bacteremia Urine cx with E coli, sensitive to LEvaquin no more fever d/c on levaquin for 11 more dys to complete 14 days f/u with uro as out pt dispo : home today
== END 2016-09-12 15:19 | disposition home or self-care (01) | DRG 872 ==
LOC: JER 16:20 → JERBED 21:00 → J7W 09-10 01:14
PROVIDERS: ADMIT Internal Medicine; ATTEND Internal Medicine
DX: A41.9 Sepsis, unspecified organism (principal); N10 Acute pyelonephritis; R65.20 Severe sepsis without septic shock; B96.20 Unspecified Escherichia coli [E. coli] as the cause of diseases classified elsewhere; R10.32 Left lower quadrant pain; N20.0 Calculus of kidney
CPT/HCPCS: 36415; 71010-TC; 74177-TC; 80048; 80053; 81003; 81015; 82550; 82553; 82803; 83605; 84484; 84703; 85025; 85610; 85730; 86850; 86900; 86901; 87040; 87086; 87186; 93005; 93010; 99285-25; J1644

== ENCOUNTER 2018-12-22 12:26 | Emergency (ER) | payer BC ==
--- NOTE | 2018-12-22 12:31 | PDOC ---
History of Present Illness - General Chief Complaint: Pain Stated Complaint: RIGHT LEG CRAMPS, NUMBNESS Time Seen by Provider: 12/22/18 12:30 History Source: Patient Exam Limitations: No Limitations - History of Present Illness Initial Comments: 12/22/18 12:52 Millie Bergeron is a 38y previously healthy F presenting with R leg cramping. Started 1hr ago while she was walking, tender in R posterior calf. Had 2 prior episodes in past month, same location. No trauma. Can still walk. Denies leg numbness, tingling, rash, fever, SOB/chest pain, loss of urinary/ bowel function. 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 Past History - Past Medical History Allergies/Adverse Reactions: Allergies Allergy/AdvReac Type Severity Reaction Status Date / Time No Known Allergies Allergy Verified 12/22/18 12:29 Home Medications: Ambulatory Orders NK [No Known Home Medication] 12/22/18 Anemia: No Asthma: No Cancer: No Cardiac Disorders: No CVA: No COPD: No CHF: No Dementia: No Diabetes: No GI Disorders: No Disorders: No HTN: No Hypercholesterolemia: Yes Kidney Stones: Yes Liver Disease: No Seizures: No Thyroid Disease: No - Surgical History Abdominal Surgery: Yes (TUBAL LIGATION) Appendectomy: No Cardiac Surgery: No Cholecystectomy: No Lung Surgery: No Neurologic Surgery: No Orthopedic Surgery: Yes (ACL REPAIR 2008) - Suicide/Smoking/Psychosocial Hx Smoking Status: No Smoking History: Never smoked Have you smoked in the past 12 months: No Number of Cigarettes Smoked Daily: 0 Hx Alcohol Use: No Drug/Substance Use Hx: No Substance Use Type: None Hx Substance Use Treatment: No Review of Systems - Review of Systems Constitutional: No: Chills, Fever HEENTM: No: Eye Pain, Ear Pain, Throat Pain, Mouth Pain Respiratory: No: Cough, Shortness of Breath Cardiac (ROS): No: Chest Pain, Lightheadedness, Palpitations, Syncope ABD/GI: No: Constipated, Diarrhea, Nausea, Vomiting : No: Burning, Dysuria, Discharge, Frequency, Flank Pain, Hematuria Musculoskeletal: Yes: Muscle Pain. No: Back Pain, Joint Pain, Joint Swelling, Muscle Weakness Integumentary: No: Bruising, Dryness, Erythema, Flushing Neurological: No: Headache, Numbness, Paresthesia, Seizure, Tingling, Tremors Psychiatric: No: Anxiety, Depression Endocrine: No: Excessive Sweating, Flushing, Intolerance to Cold, Intolerance to Heat Hematologic/Lymphatic: No: Anemia, Blood Clots, Easy Bleeding *Physical Exam - Physical Exam General Appearance: Yes: Nourished, Appropriately Dressed. No: Apparent Distress HEENT: positive: EOMI, RAKESH, Normal Voice, Hearing Grossly Normal. negative: Nasal Congestion, Rhinorrhea, Lesions, Flores Respiratory/Chest: positive: Lungs Clear, Normal Breath Sounds. negative: Chest Tender, Respiratory Distress, Crackles, Rales, Rhonchi, Stridor, Wheezing Cardiovascular: positive: Regular Rhythm, Regular Rate, S1, S2. negative: Edema , Murmur Extremity: positive: Normal Inspection, Normal Range of Motion, Calf Tenderness , Other (Bilateral lower extremities: good distal pulses, 5/5 motor strength, normal/equal sensation). negative: Pedal Edema, Swelling, Erythema, Inflammation Integumentary: positive: Normal Color Neurologic: positive: Fully Oriented, Alert, Normal Mood/Affect, Normal Response , Motor Strength 5/5, Responsive. negative: Numbness, Confused, Disoriented Medical Decision Making - Medical Decision Making 12/22/18 12:55 Given 400 ibuprofen Millie Bergeron is a 38y previously healthy F presenting with R leg cramping. Cramping likely d/t strenuous walking and inadequate hydration as rural route carrier. Normal pulses, sensation, strength, ROM on leg exam. No leg swelling indicating thrombosis. No LE numbness, loss of function suggesting cauda equina. No trauma. Given ibuprofen for pain relief. D/c home with stretching exercises, advised to drink fluids, rest, take NSAIDs if needed. 12/22/18 12:59 *DC/Admit/Observation/Transfer Diagnosis at time of Disposition: Leg cramp - Discharge Dispostion Disposition: HOME Condition at time of disposition: Good - Referrals Referrals: David Mora MD [Primary Care Provider] - - Patient Instructions Printed Discharge Instructions: Stretching Exercises, DI for Leg Pain Additional Instructions: You were seen for right leg cramping. Your exam did not show anything concerning. You were given ibuprofen for the pain. When you get a leg cramp, stretch and rest your leg. Drink plenty of fluids and take ibuprofen if the pain persists. Please seen your primary care doctor if you continue to have muscle cramps. Come back to the ED if you cannot walk or the pain is unbearable. - Post Discharge Activity Forms/Work/School Notes: Back to Work
[2018-12-22 12:40] VITALS: BP 142/108; PULSE 80; TEMP 98.3; BMI 30.2
[2018-12-22] MEDS ORDERED: IBUPROFEN 400 MG TABLET (FP) PO ONE ×2 (12:47→12:51)
--- NOTE | 2018-12-22 12:58 | PDOC ---
Attending Attestation - Resident Resident Name: Mayito Guzmán - HPI HPI: 12/22/18 13:00 Pt presents to the ED complaining of cramping to her RLE that has been present since last night. 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 Denies swelling, fever, or injury to the leg. Pain involves the lower thigh, knee and upper leg, and is made worse by standing and walking. Pain is described as cramping and is moderate in severity. - Physicial Exam PE: 12/22/18 13:06 Gen: alert, NAD EXt: No deformity, swelling or tenderness. Calves are symmetric, with no edema. full ROM at knee. Able to weightbear without difficulty. - Medical Decision Making 12/22/18 13:07 Pt presents to the ED complaining of cramping in her RLE. No symptoms suggestive of infection, claudication or DVT. Most likely muscular pain. Will discharge home with instructions to return to the ED for follow up.
== END 2018-12-22 13:00 | disposition home or self-care (01) ==
LOC: FER 12:26
DX: R25.2 Cramp and spasm (principal); E78.00 Pure hypercholesterolemia, unspecified
CPT/HCPCS: 99282-25

== ENCOUNTER 2020-07-09 18:00 | Emergency (ER) | payer BC ==
[2020-07-09 18:09] VITALS: BP 130/91; PULSE 95; TEMP 98.1; BMI 31.1
[2020-07-09 19:17] LABS: HCG,QUALITATIVE URINE Negative
[2020-07-09 19:18] LABS: PH,URINE 6.5 (5.0-8.0); URINE APPEARANCE CLEAR; URINE BILIRUBIN NEGATIVE (NEGATIVE); URINE COLOR YELLOW; URINE GLUCOSE (UA) NEGATIVE (NEGATIVE); URINE KETONE NEGATIVE (NEGATIVE); URINE LEUK ESTERASE NEGATIVE (NEGATIVE); URINE NITRITE NEGATIVE (NEGATIVE); URINE PROTEIN NEGATIVE (NEGATIVE); URINE UROBILINOGEN 0.2 mg/dL (0.2-1.0)
[2020-07-09] MEDS ORDERED: ACETAMINOPHEN 1000 MG/100 ML VIAL (NON FORMULARY) IVPB ONE (19:30)
[2020-07-09] MEDS ORDERED: LACTATED RINGERS SOLUTION 1000 ML INFUS.BAG IV ONE (19:30)
[2020-07-09] MEDS ORDERED: ACETAMINOPHEN INJECTION 100 ML IVPB ONE (19:51)
[2020-07-09 20:31] LABS: BASO % 0.5 % (0-2.0); EOS % 2.1 % (0-4.5); HEMATOCRIT 37.1 % (32.4-45.2); HEMOGLOBIN 12.6 GM/dL (10.7-15.3); LYMPH % 21.9 % (8-40); MCH 28.3 pg (25.7-33.7); MCHC 33.9 g/dl (32.0-36.0); MEAN CELL VOLUME 83.5 fl (80-96); MEAN PLT VOLUME 7.2 fl (7.5-11.1); MONO % 10.4 % (3.8-10.2); NEUT % 65.1 % (42.8-82.8); PLATELET COUNT 470 K/MM3 (134-434); RBC 4.44 M/mm3 (3.60-5.2); RDW 13.4 % (11.6-15.6); WHITE BLOOD COUNT 10.3 K/mm3 (4.0-10.0)
[2020-07-09 20:35] LABS: BLOOD UREA NITROGEN 9.6 mg/dL (7-18); CALCIUM 9.3 mg/dL (8.5-10.1)
[2020-07-09 20:36] LABS: ALBUMIN 3.6 g/dl (3.4-5.0)
[2020-07-09 20:39] LABS: CREATININE 0.7 mg/dL (0.55-1.3)
[2020-07-09 20:40] LABS: BILIRUBIN,TOTAL 0.2 mg/dL (0.2-1); TOT PROT 7.2 g/dl (6.4-8.2)
[2020-07-10 00:07] LABS: URINE RBC 0-5 /hpf (0-4); URINE WBC 0-2 (NEGATIVE)
[2020-07-10 00:08] LABS: EPI CELLS 0-5 /HPF; HYALINE CASTS 0 /lpf; URINE BACTERIA FEW /hpf (NEGATIVE)
== END 2020-07-10 00:17 | disposition home or self-care (01) ==
LOC: JER 18:00
PROC: 3E033NZ Introduction of Analgesics, Hypnotics, Sedatives into Peripheral Vein, Percutaneous Approach (ICD-10-PCS; principal; 2020-07-09)
DX: K57.90 Diverticulosis of intestine, part unspecified, without perforation or abscess without bleeding (principal); N83.201 Unspecified ovarian cyst, right side
CPT/HCPCS: 36415; 74177-TC; 80053; 81003; 83605; 84703; 85025; 87086; 99285-25; J0131; Q9967

== ENCOUNTER 2022-04-09 17:14 | Emergency (ER) | payer OTHER, BC ==
[2022-04-09 18:29] VITALS: BP 136/90; PULSE 89; RESP 18; TEMP 97.8; BMI 30.2
[2022-04-09] MEDS ORDERED: ACETAMINOPHEN 500 MG TABLET (FP) PO ONE (18:57)
[2022-04-09] MEDS ORDERED: KETOROLAC TROMETHAMINE 30 MG/1 ML VIAL IM ONE (18:57)
[2022-04-09] MEDS ORDERED: KETOROLAC TROMETHAMINE 30 MG/1 ML VIAL ONE (19:48)
[2022-04-09] MEDS ORDERED: ACETAMINOPHEN 500 MG TABLET (FP) ONE (19:49)
== END 2022-04-09 20:36 | disposition home or self-care (01) ==
LOC: JER 17:14 → JERFT 17:14
PROC: 3E0233Z Introduction of Anti-inflammatory into Muscle, Percutaneous Approach (ICD-10-PCS; principal; 2022-04-09)
DX: S93.492A Sprain of other ligament of left ankle, initial encounter (principal); W10.9XXA Fall (on) (from) unspecified stairs and steps, initial encounter
CPT/HCPCS: 73610-TC-RT-FY; 73630-TC-RT-FY; 99284-25

== ENCOUNTER 2022-07-18 04:22 | Day surgery (SDC) | payer BC, OTHER ==
[2022-07-13 18:45] VITALS: BMI 30.4
[~2022-07-18 04:22] MED LIST: BUPIVACAINE 0.25% /EPI 1:200,000 10 ML VIAL NR ONE
[2022-07-18] MEDS ORDERED: ceFAZolin SODIUM 1 GM VIAL ONE (07:37)
[2022-07-18] MEDS ORDERED: CEFAZOLIN 2 GM in DEXTROSE 5%-WATER - 100 ML IVPB ONE (08:00)
[2022-07-18] MEDS ORDERED: ceFAZolin SODIUM 1 GM VIAL IVPB ONE (09:58)
[2022-07-18] MEDS ORDERED: BUPIVACAINE 0.25% /EPI 1:200,000 10 ML VIAL NR ONE ×2 (12:09)
[2022-07-18] MEDS ORDERED: KETOROLAC TROMETHAMINE 30 MG/1 ML VIAL IVPUSH PRN (12:43)
[2022-07-18] MEDS ORDERED: SIMETHICONE 80 MG TAB.CHEW (FP) PO PRN (12:43)
[2022-07-18] MEDS ORDERED: oxyCODONE HCL 5 MG TABLET PO ONE (12:57)
[2022-07-18] MEDS ORDERED: ONDANSETRON 4 MG/2 ML VIAL ONE (13:01)
[2022-07-18] MEDS ORDERED: ONDANSETRON 4 MG/2 ML VIAL IVPUSH ONE (13:41)
[2022-07-18] MEDS: HYDROmorphone HCl 2 MG/ML VIAL ONE ×4 (14:03→14:49)
[2022-07-18] MEDS ORDERED: HYDROmorphone HCL 2 MG TABLET PO ONE (15:50)
[2022-07-18 15:56] VITALS: RESP 20; TEMP 98
[2022-07-18] MEDS ORDERED: ACETAMINOPHEN 1000 MG/100 ML BAG IVPB ONE (18:00)
[2022-07-18 19:58] VITALS: BP 110/68; PULSE 70
== END 2022-07-18 17:55 | disposition home or self-care (01) ==
LOC: JASU-SURG 04:22
PROVIDERS: ATTEND Specialist
PROC: 8E0W4CZ Robotic Assisted Procedure of Trunk Region, Percutaneous Endoscopic Approach (ICD-10-PCS; 2022-07-18)
PROC: 0UQF7ZZ Repair Cul-de-sac, Via Natural or Artificial Opening (ICD-10-PCS; 2022-07-18)
PROC: 0UT9FZZ Resection of Uterus, Via Natural or Artificial Opening With Percutaneous Endoscopic Assistance (ICD-10-PCS; principal; 2022-07-18 09:00)
PROC: 0UT7FZZ Resection of Bilateral Fallopian Tubes, Via Natural or Artificial Opening With Percutaneous Endoscopic Assistance (ICD-10-PCS; 2022-07-18 09:00)
DX: D25.1 Intramural leiomyoma of uterus (principal); N72 Inflammatory disease of cervix uteri; N83.8 Other noninflammatory disorders of ovary, fallopian tube and broad ligament; N81.5 Vaginal enterocele
CPT/HCPCS: 57268; 58554; S2900; 81025; 82962; 88302-TC; 88307-TC; 94760

== ENCOUNTER 2024-01-07 19:21 | Emergency (ER) | payer BC ==
[2024-01-07 19:34] VITALS: BP 150/99; PULSE 78; RESP 18; TEMP 97.7; BMI 31.1
[2024-01-07] MEDS: LACTATED RINGERS SOLUTION 1000 ML INFUS.BAG IV ONE (20:39)
[2024-01-07 20:43] LABS: BASO % 0.6 % (0-2.0); EOS % 2.5 % (0-4.5); HEMATOCRIT 38.7 % (32.4-45.2); LYMPH % 20.8 % (8-40); MCHC 33.5 g/dl (32.0-36.0); MEAN CELL VOLUME 83.6 fl (80-96); MEAN PLT VOLUME 6.8 fl (7.5-11.1); MONO % 8.7 % (3.8-10.2); NEUT % 67.4 % (42.8-82.8); PLATELET COUNT 434 10^3/uL (134-434); RBC 4.63 M/mm3 (3.60-5.2); RDW 13.7 % (11.6-15.6); WHITE BLOOD COUNT 9.8 K/mm3 (4.0-10.0)
[2024-01-07 20:47] LABS: HCG,QUALITATIVE URINE Negative
[2024-01-07] MEDS ORDERED: ACETAMINOPHEN INJECTION 100 ML ONE (20:48)
[2024-01-07 20:53] LABS: URINE APPEARANCE CLEAR; URINE BILIRUBIN NEGATIVE (NEGATIVE); URINE COLOR YELLOW; URINE GLUCOSE (UA) NEGATIVE (NEGATIVE); URINE KETONE NEGATIVE (NEGATIVE); URINE LEUK ESTERASE NEGATIVE (NEGATIVE); URINE NITRITE NEGATIVE (NEGATIVE); URINE PROTEIN NEGATIVE (NEGATIVE); URINE UROBILINOGEN 0.2 mg/dL (0.2-1.0)
[2024-01-07] MEDS: ACETAMINOPHEN 1000 MG/100 ML BAG IVPB ONE (20:53)
[2024-01-07 21:09] LABS: POTASSIUM 4.1 mmol/L (3.5-5.1)
[2024-01-07 21:11] LABS: CALCIUM 9.1 mg/dL (8.5-10.1)
[2024-01-07 21:12] LABS: ALBUMIN 3.7 g/dl (3.4-5.0); BLOOD UREA NITROGEN 14.7 mg/dL (7-18)
[2024-01-07 21:15] LABS: CREATININE 0.7 mg/dL (0.55-1.3)
[2024-01-07 21:16] LABS: BILIRUBIN,TOTAL 0.2 mg/dL (0.2-1); TOT PROT 7.4 g/dl (6.4-8.2)
[2024-01-07 22:10] LABS: HIV INTERPRETATION NEGATIVE (NEGATIVE)
== END 2024-01-07 22:46 | disposition home or self-care (01) ==
LOC: JER 19:21
PROC: 3E033NZ Introduction of Analgesics, Hypnotics, Sedatives into Peripheral Vein, Percutaneous Approach (ICD-10-PCS; principal; 2024-01-07)
DX: R51.9 Headache, unspecified (principal); R42 Dizziness and giddiness; R11.0 Nausea; R19.7 Diarrhea, unspecified; R10.30 Lower abdominal pain, unspecified; R53.1 Weakness
CPT/HCPCS: 36415; 80053; 81003; 82962; 84484; 84703; 85025; 86803; 87086; 87389; 93005; 93010; 99284-25; J0131